=== PATIENT | male | born 1990 | race African-American/Black ===

== ENCOUNTER 2019-03-31 08:36 | Emergency (ER) | payer OTHER, MEDICARE ==
[~2019-03-31] VITALS: Ht 175.3 cm; Wt 72.6 kg
--- OUTSIDE RECORDS SUMMARY | 2019-03-31 08:39 | XMS REPORT | Clinical Summary ---
Author Author [facility] Address Unknown Phone Unavailable Care Team Providers Care Marriage And Family Teacher Name Role Phone Asked, No Pcp PCP Unavailable Allergies No Known Allergies Medications End Date Status Medication Sig Dispensed Refills Start Date 12/04/2018 amoxicillin-pot Take 1 tablet 20 tablet 0 clavulanate (AUGMENTIN) by mouth 9 875-125 mg per tablet every 12 (twelve) hours for 10 days. 11/27/2018 traMADol (ULTRAM) 50 mg Take 1 tablet 20 tablet 0 tablet (50 mg total) 9 by mouth every 6 (six) hours as needed for moderate pain for up to 3 days. Active Problems Not on file Encounters Care Team Description Date Type Specialty Jareth Dominguez MD Right facial swelling (Primary Dx); Pain due to dental caries 11/24/2018 Emergency Emergency Medicine after 03/30/2018 Social History Date Tobacco Use Types Packs/Day Years Used Never Smoker Smokeless Tobacco: Never Used Alcohol Use Drinks/Week oz/Week Comments Yes occasionally Sex Assigned at Date Recorded Not on file Industry Job Start Date Occupation Not on file Not on file Not on file Travel End Travel History Travel Start No recent travel history available. Last Filed Vital Signs Time Taken Vital Sign Reading 11/24/2018 8:58 PM CDT Blood Pressure 137/76 11/24/2018 8:58 PM CDT Pulse 96 11/24/2018 8:58 PM CDT Temperature 37.3 C (99.2 F) 11/24/2018 8:58 PM CDT Respiratory Rate 20 11/24/2018 8:58 PM CDT Oxygen Saturation 96% - Inhaled Oxygen - Concentration 11/24/2018 9:03 PM CDT Weight 77.1 kg (170 lb) 11/24/2018 9:03 PM CDT Height 175.3 cm (5' 9") 11/24/2018 9:03 PM CDT Body Mass Index 25.1 Plan of Treatment Not on file Procedures Comments Procedure Name Priority Date/Time Associated Diagnosis ED REFERRAL TO [facility] Routine 11/24/2018 [facility]EN[facility]E PHYSICIAN 9:14 PM CDT ORGANIZATION after 03/30/2018 Results Not on fileafter 03/30/2018 Insurance Type Payer Benefit Subscriber ID Effective Phone Address Plan / Dates Group Medicare MEDICARE MEDICARE xxxxxxxxxxx 2012-P JIM, PART A AND [place] Advance Directives Patient has advance care planning documents on file. For more information, ector schumacher contact: Jim Viveros [address] [place] [address]
--- OUTSIDE RECORDS SUMMARY | 2019-03-31 08:39 | XMS REPORT ---
Author Author [facility] Address Unknown Phone Unavailable Care Team Providers Care Dyer Assistant Name Role Phone Unavailable Unavailable Problems This patient has no known problems. Allergies, Adverse Reactions, Alerts This patient has no known allergies or adverse reactions. Medications This patient has no known medications. Encounters Start Date/Time End Date/Time Encounter Type Admission Type Attending Clinicians Care Facility Care Department Encounter ID 2018-12-16 20:35:00 2018-12-16 20:35:00 Emergency E [id number]
--- NOTE | 2019-03-31 09:15 | Diagnostic Imaging Report ---
EXAMINATION: SHOULDER 2+VW RT - HOPD INDICATION: Shoulder pain COMPARISON: None FINDINGS: 3 views of the right shoulder demonstrate no acute fracture or dislocation. Alignment is anatomic. Calcified granuloma at the right lung apex. The remainder of the partially visualized right lung is clear. The soft tissues appear unremarkable. IMPRESSION: No acute osseous injury. Signed by: Marah Casillas MD on 03/31/2019 9:12 AM
[2019-03-31 09:40] VITALS: BP 157/82
== END 2019-03-31 09:45 | disposition home or self-care (01) ==
LOC: FSED 08:36
DX: S43.51XA Sprain of right acromioclavicular joint, initial encounter (principal); X50.1XXA Overexertion from prolonged static or awkward postures, initial encounter; Y99.0 Civilian activity done for income or pay
CPT/HCPCS: 99283